=== PATIENT | male | born 2000 | race Two or more races ===

== ENCOUNTER 2021-05-28 22:30 | Emergency (ER) | payer OTHER ==
[~2021-05-28] VITALS: Ht 170.2 cm; Wt 63.6 kg
[2021-05-28] MEDS ORDERED: normal saline 1000ml 1,000 ML IV ONE (23:05)
[2021-05-28 23:33] VITALS: BP 127/73
== END 2021-05-29 00:09 | disposition home or self-care (01) ==
LOC: ER 22:30
DX: T40.411A Poisoning by fentanyl or fentanyl analogs, accidental (unintentional), initial encounter (principal); R55 Syncope and collapse; F17.200 Nicotine dependence, unspecified, uncomplicated; F15.90 Other stimulant use, unspecified, uncomplicated; Z72.89 Other problems related to lifestyle; Z59.0 Homelessness; Z60.2 Problems related to living alone; Y92.89 Other specified places as the place of occurrence of the external cause
CPT/HCPCS: 71045; 93005; 96360; 99283; J7030